=== PATIENT | female | born 1980 | race Native Hawaiian/Other Pacific Islander ===

== ENCOUNTER 2017-07-05 21:58 | Emergency (ER) | payer SELFPAY ==
[2017-07-05 22:21] VITALS: TEMP 98
[2017-07-05] MEDS ORDERED: Sodium Chloride 0.9% 1,000 ML ONE (22:32)
[2017-07-05] MEDS ORDERED: Sodium Chloride 0.9% 1,000 ML IV ONE (22:36)
--- NOTE | 2017-07-05 22:38 | C.PDOC ---
Chief Complaint (Nursing): High Blood Sugar Past Medical History Vital Signs: Last Vital Signs Temp 98 F 07/05/17 22:15 Pulse 76 07/05/17 22:15 Resp 20 07/05/17 22:15 BP 146/77 07/05/17 22:15 Pulse Ox 98 07/05/17 22:15 - Medical History PMH: Diabetes (Type II), Hypercholesterolemia Surgical History: Appendectomy, Family History: States: Unknown Family Hx - Social History Hx Alcohol Use: No Hx Substance Use: No - Immunization History Hx Tetanus Toxoid Vaccination: No Hx Influenza Vaccination: Yes Hx Pneumococcal Vaccination: No ED Course And Treatment O2 Sat by Pulse Oximetry: 98 Disposition - Disposition
--- NOTE | 2017-07-05 22:39 | C.PDOC ---
History Of Present Illness 37 year old female with a 8 year history of Non-Insulin Dependent Diabetes Mellitus presents to the ED complaining of high blood sugar over the last few days. Patient reports of having frontal headaches, nausea and feeling tired which she normally feels when her blood sugar levels are high. Denies polyuria, polydypsia, dysuria, abdominal pain, fever, neck stiffness, skin rashes or lesions she's aware of. Chief Complaint (Nursing): High Blood Sugar History Per: Patient History/Exam Limitations: no limitations Onset/Duration Of Symptoms: Days Current Symptoms Are (Timing): Still Present Current Diabetic Medications: None Associated Infectious Symptoms: Nausea. denies: Dysuria, Urinary Urgency, Urinary Frequency, Vomiting Past Medical History Reviewed: Historical Data, Nursing Documentation, Vital Signs Vital Signs: Last Vital Signs Temp 98 F 07/05/17 22:15 Pulse 76 07/05/17 22:15 Resp 20 07/05/17 22:15 BP 146/77 07/05/17 22:15 Pulse Ox 98 07/05/17 23:05 - Medical History PMH: Diabetes (Type II), Hypercholesterolemia Surgical History: Appendectomy, Family History: States: Unknown Family Hx - Social History Hx Alcohol Use: No Hx Substance Use: No - Immunization History Hx Tetanus Toxoid Vaccination: No Hx Influenza Vaccination: Yes Hx Pneumococcal Vaccination: No Review Of Systems Except As Marked, All Systems Reviewed And Found Negative. Constitutional: Positive for: Other (High Blood Sugar) Gastrointestinal: Positive for: Nausea Neurological: Positive for: Headache Physical Exam - Physical Exam Appears: In Acute Distress (mild distress due to headaches) Eye(s): bilateral: Normal Inspection, PERRL, EOMI Ear(s): Bilateral: Normal Nose: Normal Oral Mucosa: Moist Throat: Normal Neck: Normal, Normal ROM, Supple (without meninges) Cardiovascular: Rhythm Regular (s1 and s2 normal within limits) Respiratory: Normal Breath Sounds Gastrointestinal/Abdominal: Normal Exam, Soft, No Tenderness Extremity: Normal ROM (5/5 strength), No Pedal Edema Pulses: Left Dorsalis Pedis: Normal (peripherally 2+), Right Dorsalis Pedis: Normal (peripherally 2+) Neurological/Psych: Oriented x3, Normal Cranial Nerves (cranial nerves 2-12 intact) ED Course And Treatment - Laboratory Results Result Diagrams: 07/05/17 22:45 07/05/17 22:45 O2 Sat by Pulse Oximetry: 98 (RA) Pulse Ox Interpretation: Normal Medical Decision Making Medical Decision Making: Time: 2234 Impression: Poorly controlled diabetes Plan: -- CMP -- CBC with differentials -- CXR (2 Views) -- Glucose, POC -- Sodium Chloride IV 1000 mls/hr -- POC Urine -- Urinalysis At bedside, patient's accucheck results was 200. Patient will be assessed for poor diabetes control. Time: 2303 -- CXR results: No active pulmonary disease. Cardiac silhouette within normal limits. Disposition - Disposition Referrals: [facility] at [facility] [Outside] Disposition: HOME/ ROUTINE Disposition Time: 00:25 Condition: FAIR Instructions: Hyperglycemia, Adult Forms: [facility] (Montenegrin) Print Language: URDU - Clinical Impression Clinical Impression: Hyperglycemia - Scribe Statement The provider has reviewed the documentation as recorded by the Vernonibe Samir Overton Provider Attestation: All medical record entries made by the Scribe were at my direction and personally dictated by me. I have reviewed the chart and agree that the record accurately reflects my personal performance of the history, physical exam, medical decision making, and the department course for this patient. I have also personally directed, reviewed, and agree with the discharge instructions and disposition.
[2017-07-05 22:48] LABS: BASO % 0.4 % (0.0-2.0); EOS # 0.4 K/uL (0.0-0.7); HEMOGLOBIN 11.9 g/dL (11.0-16.0); LYMPH # 4.4 K/uL (1.0-4.3); LYMPH % 32.7 % (20.0-40.0); MEAN CELL VOLUME 85.5 fL (81.0-99.0); MEAN CORPUSCULAR HEMOGLOBIN 28.3 pg (27.0-31.0); MEAN CORPUSCULAR HGB CONC 33.1 g/dL (33.0-37.0); MEAN PLATELET VOLUME 8.5 fL (7.2-11.7); MONO # 0.9 K/uL (0.0-0.8); MONO % 7.1 % (0.0-10.0); NEUT # 7.6 K/uL (1.8-7.0); NEUT % 56.8 % (50.0-75.0); RBC 4.21 Mil/uL (3.80-5.20); RED CELL DISTRIBUTION WIDTH 14.3 % (11.5-14.5); WHITE BLOOD COUNT 13.3 K/uL (4.8-10.8)
[2017-07-05 23:00] LABS: ALB/GLOB RATIO 1.1 (1.0-2.1); ALBUMIN 3.6 g/dL (3.5-5.0); ALT/SGPT 14 U/L (9-52); AST/SGOT 14 U/L (14-36); BLOOD UREA NITROGEN 10 mg/dL (7-17); CALCIUM 8.6 mg/dl (8.6-10.4); GFR AFRICAN-AMERICAN > 60; GFR NON-AFRICAN AMERICAN > 60
[2017-07-06 00:24] LABS: SQUAMOUS EPITHIAL < 1 /hpf (0-5); URINE BILIRUBIN NEGATIVE (NEGATIVE); URINE CLARITY Clear (Clear); URINE COLOR Yellow (YELLOW); URINE GLUCOSE (UA) 3+ mg/dL (Normal); URINE LEUKOCYTE ESTERASE TRACE Leu/uL (Negative); URINE PROTEIN NEGATIVE (NEGATIVE); URINE UROBILINOGEN NORMAL mg/dL (0.2-1.0)
[2017-07-06 00:27] VITALS: BP 119/65; PULSE 70; RESP 14; O2SAT 99
[2017-07-06 01:35] LABS: URINE BLOOD TRACE (NEGATIVE)
--- NOTE | 2017-07-06 07:42 | RAD ---
HISTORY: SOB COMPARISON: No prior. TECHNIQUE: Chest PA and lateral FINDINGS: LUNGS: No active pulmonary disease. PLEURA: No significant pleural effusion identified. No pneumothorax apparent. CARDIOVASCULAR: Normal. OSSEOUS STRUCTURES: No significant abnormalities. VISUALIZED UPPER ABDOMEN: Normal. OTHER FINDINGS: None. IMPRESSION: No acute cardiopulmonary disease appreciated.
== END 2017-07-06 00:27 | disposition home or self-care (01) ==
LOC: C.ER 21:58
DX: E11.65 Type 2 diabetes mellitus with hyperglycemia (principal); E78.00 Pure hypercholesterolemia, unspecified
CPT/HCPCS: 71046; 80053; 81001; 82948; 85025; 96361; 96374; 96375; 99285; J1885; J2405; J7040